=== PATIENT | male | born 1975 ===

== ENCOUNTER → 2018-02-04 13:31 | Outpatient (REF) | payer OTHER, SELFPAY ==
[2018-02-04 14:18] LABS: Erythrocyte Sedimentation Rate 4 MM/HR (0-15)
== END ==
LOC: LAB 13:31
PROVIDERS: Visit Provider Family Medicine
DX: M35.9 Systemic involvement of connective tissue, unspecified (principal); Z13.6 Encounter for screening for cardiovascular disorders
CPT/HCPCS: 36415; 85651

== ENCOUNTER → 2018-02-06 17:32 | Outpatient (REF) | payer OTHER, SELFPAY ==
[2018-02-06 18:05] LABS: C-Reactive Protein Quant < 0.5 mg/dL (<1.0)
== END ==
LOC: LAB 17:32
PROVIDERS: Visit Provider Family Medicine
DX: M35.9 Systemic involvement of connective tissue, unspecified (principal)
CPT/HCPCS: 86140